=== PATIENT | male | born 1995 | race Caucasian/White ===

== ENCOUNTER 2018-10-16 15:50 | Emergency (ER) | payer OTHER ==
[2018-10-16 16:06] VITALS: BP 110/70
--- NOTE | 2018-10-16 16:28 | ED ---
Skin Complaint - HPI Summary HPI Summary: pustular lesion left forearm which he manipulated to try to get pus out. pus obtained with development of some surrounding erythema - History of Current Complaint Chief Complaint: UCSkin Time Seen by Provider: 10/16/18 15:58 Stated Complaint: RASH Hx Obtained From: Patient Onset/Duration: Started Days Ago Onset Severity: Moderate Pain Intensity: 0 Skin Location: Arm Aggravating Symptom(s): Nothing Alleviating Symptom(s): Nothing Associated Signs & Symptoms: Negative - Allergy/Home Medications Allergies/Adverse Reactions: Allergies Allergy/AdvReac Type Severity Reaction Status Date / Time Cephalosporins Allergy Altered Verified 10/16/18 16:06 Mental Status Penicillins Allergy Anaphylatic Verified 10/16/18 16:06 Shock Home Medications: Home Medications Doxylamine Succinate [Unisom Sleep Aid] 25 mg PO BEDTIME 10/16/18 [History Confirmed 10/16/18] PMH/Surg Hx/FS Hx/Imm Hx Previously Healthy: Yes - Surgical History Surgery Procedure, Year, and Place: elbow surgery Infectious Disease History: No Infectious Disease History: Denies: Traveled Outside the [place] in Last 30 Days - Social History Alcohol Use: Weekly Substance Use Type: Reports: Marijuana Smoking Status (MU): Never Smoked Tobacco Review of Systems Constitutional: Negative Eyes: Negative ENT: Negative Cardiovascular: Negative Respiratory: Negative Gastrointestinal: Negative Genitourinary: Negative Musculoskeletal: Negative Skin: Other - redness , swelling Neurological: Negative All Other Systems Reviewed And Are Negative: Yes Physical Exam Triage Information Reviewed: Yes Vital Signs On Initial Exam: Initial Vitals Temp Pulse Resp BP Pulse Ox 36.4 C 51 18 110/70 96 10/16/18 16:01 10/16/18 16:01 10/16/18 16:01 10/16/18 16:01 10/16/18 16:01 Vital Signs Reviewed: Yes Appearance: Positive: Well-Appearing Skin: Positive: Warm, Dry - area left forearm with lesion with scab and some surrounding erythema consistent with cellulitis, not typical of erythema migrans Head/Face: Positive: Normal Head/Face Inspection Eyes: Positive: Normal ENT: Positive: Normal ENT inspection Respiratory/Lung Sounds: Positive: Clear to Auscultation Cardiovascular: Positive: Normal Abdomen Description: Positive: Nontender Bowel Sounds: Positive: Present Diagnostics - Vital Signs Vital Signs Temp Pulse Resp BP Pulse Ox 10/16/18 16:01 36.4 C 51 18 110/70 96 - Laboratory Lab Statement: Any lab studies that have been ordered have been reviewed, and results considered in the medical decision making process. Course/Dx - Diagnoses Provider Diagnoses: Cellulitis Discharge - Sign-Out/Discharge Documenting (check all that apply): Patient Departure All imaging exams completed and their final reports reviewed: No Studies - Discharge Plan Condition: Fair Disposition: HOME Prescriptions: Clindamycin Cap(NF) [Clindamycin Cap 300 mg Cap(NF)] 300 mg PO TID 7 Days #21 cap Referrals: No Primary Care Phys,NOPCP [Primary Care Provider] - - Billing Disposition and Condition Condition: FAIR Disposition: Home
== END 2018-10-16 16:30 | disposition home or self-care (01) ==
LOC: UCEAST 15:50
DX: L03.114 Cellulitis of left upper limb (principal); Z09 Encounter for follow-up examination after completed treatment for conditions other than malignant neoplasm; Z88.1 Allergy status to other antibiotic agents; Z88.0 Allergy status to penicillin
CPT/HCPCS: 99202; G0463